=== PATIENT | male | born 1995 | race African-American/Black ===

== ENCOUNTER 2019-02-21 12:34 | Emergency (ER) | payer MEDICAID ==
[~2019-02-21] VITALS: Ht 185.4 cm; Wt 79.4 kg
--- NOTE | 2019-02-21 12:39 | NUR ---
PT. NOT IN THE WAITING ROOM UPON BEING CALLED FOR TRIAGE
--- NOTE | 2019-02-21 12:50 | NUR ---
ED Nurse Note: PT CALLED BUT NOT IN WAITING AREA.
[2019-02-21 13:02] VITALS: BP 132/74
[2019-02-21] MEDS ORDERED: OLANZAPINE5 MG ORAL (13:05)
--- NOTE | 2019-02-21 13:10 | NUR ---
ED Nurse Note: PT WALKED IN DUE TO DOG BITE ON HIS RLE THIS AM. REPORTS IT WAS A STRAY DOG AND HAS NOT HAD HIS TETANUS SHOT. NOTED BITE WAGNER ON RLE AND NO ACTIVE BLEEDING. AAO X4 AND AMBULATORY.
[2019-02-21] MEDS ORDERED: Tetanus/Diptheria/Pertussis IM ONE (13:15)
--- NOTE | 2019-02-21 13:19 | Emergency Room Report ---
History of Present Illness General Chief Complaint: Animal Bite Source: Patient Present Illness HPI 23 YO Male presents to the ED c/o dog bite x 1 day to the anterior right ashby causing 2/10 in severity pain/tenderness. Pt states bite occurred this am, a non -aggressive stray dog bit him as it walked past him. Pt. is not UTD with his tetanus. Pt. denies bleeding at this time. He denies taking blood thinning medications. He reports pain just with palpation. Reports some mild swelling and bruising developing. Pt. denies bone pain or suspicion of fx. Pt. reports he was bitten through his pants. Allergies: Coded Allergies: MERCURY (ELEMENTAL) (Verified Allergy, Unknown, 02/21/19) Patient History Past Medical History: see triage record Past Surgical History: none Pertinent Family History: none Reviewed Nursing Documentation: PMH: Agreed; PSxH: Agreed Nursing Documentation-PMH Past Medical History: No History, Except For History Of Psychiatric Problem: Yes - PSYCHOSIS Review of Systems All Other Systems: negative except mentioned in HPI Physical Exam Vital Signs Date Time Temp Pulse Resp B/P (MAP) Pulse Ox O2 Delivery O2 Flow Rate FiO2 02/21/19 13:02 98.1 92 18 132/74 98 Room Air Sp02 EP Interpretation: reviewed, normal General Appearance: no apparent distress, alert, GCS 15, non-toxic Head: normocephalic, atraumatic Eyes: bilateral eye normal inspection, bilateral eye PERRL ENT: hearing grossly normal, normal voice Neck: full range of motion Respiratory: lungs clear, normal breath sounds, speaking full sentences Cardiovascular #1: regular rate, rhythm, normal capillary refill Cardiovascular #2: 2+ dorsalis pedis (R) - post. tibial Musculoskeletal: back normal, gait/station normal, normal range of motion, non- tender Neurologic: alert, oriented x3, responsive, motor strength/tone normal, sensory intact, speech normal, grossly normal Psychiatric: judgement/insight normal Skin: laceration Medical Decision Making PA Attestation Dr. Connolly is my supervising Physician whom patient management has been discussed with. Diagnostic Impression: Primary Impression: Dog bite of lower extremity ER Course 23 YO Male presents to the ED c/o dog bite x 1 day to the anterior right ashby causing 2/10 in severity pain/tenderness. Pt states bite occurred this am, a non -aggressive stray dog bit him as it walked past him. Pt. is not UTD with his tetanus. Pt. denies bleeding at this time. He denies taking blood thinning medications. He reports pain just with palpation. Reports some mild swelling and bruising developing. Pt. denies bone pain or suspicion of fx. Pt. reports he was bitten through his pants. Ddx considered but are not limited to Cellulitis, rabies, fracture, neurovascular compromise of extremity. Vital signs: are WNL, pt. is afebrile H&PE are most consistent with Dog bite of the right anterior ashby- 2cm linear avulsion of the superficial layers of the dermis, no bleeding, faint scab noted.no erythema, no warmth ORDERS: none required at this time, the diagnosis is clinical ED INTERVENTIONS: -Wound was copiously irrigated with NS by pest control service technician. -Tetanus vaccination is administered. -Neosporin and dressing applied by INTERNAL AFFAIRS COMMANDER: At this time pt. is stable for d/c to home. Will provide printed patient care instructions, and any necessary prescriptions. Care plan and follow up instructions have been discussed with the patient prior to discharge. * Augmentin BID x 7 days. Last Vital Signs Date Time Temp Pulse Resp B/P (MAP) Pulse Ox O2 Delivery O2 Flow Rate FiO2 02/21/19 13:02 98.1 92 18 132/74 (93) 98 Room Air Disposition: HOME, SELF-CARE Condition: Stable Scripts Bacitracin/Polymyxin B Sulfate (BACITRACIN-POLYMYXIN OINTMENT) 28.35 Gm Oint...g. 1 APPLIC TP BID, #28.3 GM Prov: Lori Yao 02/21/19 Amoxicillin/Potassium Clav 875-125* (AUGMENTIN 875-125 TABLET*) 1 Each Tablet 1 TAB ORAL TWICE A DAY for 7 Days, #14 TAB Prov: Lori Yao 02/21/19 Patient Instructions: Animal Bite Additional Instructions: Take medications as directed. Follow up with a Primary Care Provider in 3-5 days, even if your symptoms have resolved. --Please review list of primary care clinics, if you do not already have a primary care provider Return sooner to ED if new symptoms occur, or current symptoms become worse. - Please note that this Emergency Department Report was dictated using [email or web address] software, occasionally this can lead to erroneous entry secondary to interpretation by the dictation equipment. Lori Yao Feb 21, 2019 13:19
[2019-02-21] MEDS ORDERED: AUGMENTIN 875-1 EAC1 ORAL (13:20)
[2019-02-21] MEDS ORDERED: BACITRACIN-P28.35 GM TP (13:20)
--- NOTE | 2019-02-21 13:25 | NUR ---
FAXED TO [facility] THE FORM REGARDING THE DOG BITE INCIDENT
[2019-02-21 13:34] VITALS: BP 127/70
--- NOTE | 2019-02-21 13:34 | NUR ---
ER DISCHARGE NOTE: Patient is cleared to be discharged per PA, pt is aox4, on room air, with stable vital signs. pt was given dc and prescription instructions, pt was able to verbalize understanding, pt id band removed. pt is able to ambulate with steady gait. pt took all belongings.
== END 2019-02-21 13:34 | disposition home or self-care (01) ==
LOC: EMR 13:31
DX: S81.851A Open bite, right lower leg, initial encounter (principal); Z86.59 Personal history of other mental and behavioral disorders; Z91.048 Other nonmedicinal substance allergy status; Z23 Encounter for immunization; W54.0XXA Bitten by dog, initial encounter; Y92.9 Unspecified place or not applicable
CPT/HCPCS: 90471; 90715; Z7502; 99282